=== PATIENT | male | born 1970 | race Caucasian/White ===

== ENCOUNTER 2016-09-10 18:16 | Emergency (ER) | payer OTHER ==
[~2016-09-10] VITALS: Ht 167.6 cm; Wt 72.0 kg
[2016-09-10 22:29] VITALS: BP 145/70; PULSE 88; RESP 20; TEMP 98; O2SAT 98
[2016-09-11] MEDS ORDERED: TETANUS/DIPHTHERIA TOXOID ADULT 0.5 ML VIAL IM ONE (00:30)
[2016-09-11] MEDS ORDERED: IBUPROFEN SUSP 100 MG/5 ML UDC PO ONE (00:30)
--- NOTE | 2016-09-11 01:29 | RADRPT ---
EXAM DATE/TIME: 09/11/2016 00:39 [place] COMPARISON: No previous studies available for comparison. INDICATIONS : Laceration to right hand. MEDICAL HISTORY : None. SURGICAL HISTORY : None. ENCOUNTER: Initial ACUITY: 1 day PAIN SCORE: 4/10 LOCATION: Right hand. FINDINGS: Two view examination of the right hand demonstrates no soft tissue swelling, dislocation, or fracture . The joint spaces are maintained. Bony mineralization is normal. CONCLUSION: Unremarkable limited examination of the right hand. Del Flynn MD on September 11, 2016 at 1:25 Board Certified Radiologist. This report was verified electronically.
--- NOTE | 2016-09-11 01:54 | PD ---
HPI Chief Complaint: Injury Time Seen by Provider: 00:11 Travel History International Travel<30 days: No Contact w/Intl Traveler<30days: No Traveled to known affect area: No History of Present Illness HPI 45yo M with no significant PMH presents to the ED with c/o wound next to right second digit. Pt was doing sanding and his skin was avulsed by the machine. Pt went to urgent care and was sent her for further evaluation. No imaging or tetanus given there. Denies any other injury. Denies any focal weakness or numbness. States it was not a puncture wound. PFSH Past Medical History Medical History: Denies Significant Hx Diminished Hearing: No Tetanus Vaccination: > 5 Years Influenza Vaccination: No Past Surgical History Surgical History: No Previous Surgery Social History Alcohol Use: Yes (SOCIALLY) Tobacco Use: No Substance Use: No Allergies-Medications (Allergen,Severity, Reaction): Coded Allergies: No Known Allergies (Unverified , 09/10/16) Reported Meds & Prescriptions Reported Meds & Active Scripts Active Ibuprofen 600 Mg Tab 600 Mg PO Q8HR PRN Keflex (Cephalexin) 500 Mg Cap 500 Mg PO Q8H 7 Days Review of Systems Except as stated in HPI: all other systems reviewed are Neg Physical Exam Narrative GENERAL: 45yo male not in distress. SKIN: Focused skin assessment warm/dry. HEAD: Atraumatic. Normocephalic. CARDIOVASCULAR: Regular rate and rhythm. No murmur appreciated. RESPIRATORY: No accessory muscle use. Clear to auscultation. Breath sounds equal bilaterally. GASTROINTESTINAL: Abdomen soft, non-tender, nondistended. MUSCULOSKELETAL: Right hand: +skin avulsion 0.5cm next to 2nd MCP. I can see the base on the wound and no active bleeding. No pus. FROM in all joints. Sensation intact. Radial pulse intact. NEUROLOGICAL: Awake and alert. No obvious cranial nerve deficits. Motor grossly within normal limits. Normal speech. PSYCHIATRIC: Appropriate mood and affect; insight and judgment normal. Data Data Last Documented VS Vital Signs Date Time Temp Pulse Resp B/P Pulse Ox O2 Delivery O2 Flow Rate FiO2 09/11/16 02:20 98.4 63 16 121/63 100 Orders Hand, Limited (2vws) (09/11/16 ) Tetanus/Diphtheria Tox Adult (Tetanus/Di (09/11/16 00:30) Ibuprofen Liq (Motrin Liq) (09/11/16 00:30) Cephalexin (Keflex) (09/11/16 02:15) MDM Medical Decision Making Medical Screen Exam Complete: Yes Emergency Medical Condition: Yes Interpretation(s) Last Impressions Hand X-Ray 09/11/16 0000 Signed Impressions: Service Date/Time: Sunday, September 11, 2016 00:39 - CONCLUSION: Unremarkable limited examination of the right hand. Del Flynn MD Differential Diagnosis Fracture vs. skin avulsion Narrative Course 45yo M with skin avulsion on dorsum of right hand. FROM in all digits. Neurovascular intact. Xray right hand is unremarkable. VS stable. Pt is nontoxic appearing with no fever or tachycardia. Pt received tetanus, and ibuprofen. Will cover with keflex since hands get infected easier and it was a dirty wound. Wound was irrigated and covered in the ED. Unable to close since there is no skin to approximate. Covered with dressing and instructed pt to follow up with hand tomorrow. Diagnosis Primary Impression: Avulsion of skin of hand Qualified Code: S61.401A - Avulsion of skin of hand, right, initial encounter Referrals: Cricket Chappell III, MD 1 day Patient Instructions: General Instructions Departure Forms: Tests/Procedures Additional Instructions: Please follow up with hand clinic at the earliest appointment. Return to the ED if any signs of infection or worsening pain. Med/Other Pt SpecificInfo: Prescription(s) given Scripts Ibuprofen 600 Mg [id number] Mg PO Q8HR PRN (PAIN) #20 TAB Ref 0 Prov:NatalieMarine DO 09/11/16 Cephalexin (Keflex)500 Mg Ovg005 Mg PO Q8H 7 Days Ref 0 Prov:Marine Estrada DO 09/11/16 Disposition: 01 DISCHARGE HOME Condition: Stable EstradaMarine Sep 11, 2016 01:54
[2016-09-11 02:07] VITALS: RESP 14
[2016-09-11] MEDS ORDERED: IBUP-232 PO (02:12)
[2016-09-11] MEDS ORDERED: CEPH-460 PO (02:12)
[2016-09-11] MEDS ORDERED: CEPHALEXIN MONOHYDRATE 500 MG CAP PO ONE (02:15)
[2016-09-11 02:20] VITALS: BP 121/63; TEMP 98.4
== END 2016-09-11 02:21 | disposition home or self-care (01) ==
LOC: NEPA 18:16
DX: S61.401A Unspecified open wound of right hand, initial encounter (principal); Z23 Encounter for immunization; W29.8XXA Contact with other powered hand tools and household machinery, initial encounter; Y93.H3 Activity, building and construction; Y92.9 Unspecified place or not applicable; Y99.9 Unspecified external cause status
CPT/HCPCS: 73120; 90471; 90714